=== PATIENT | female | born 1995 | race Asian ===

== ENCOUNTER 2024-05-04 06:36 | Outpatient (REF) | payer OTHER, SELFPAY ==
--- NOTE | ~2024-05-04 | US_ITS ---
EXAMINATION: ULTRASOUND PELVIC, COMPLETE CLINICAL INFORMATION: History intramenstrual bleeding for one year. COMPARISON: None. TECHNIQUE: Transvaginal: Used to better visualize pelvic structures Transabdominal: Not adequate for visualization. Spectral Doppler and color Doppler exam was utilized. LMP: Uncertain FINDINGS: UTERUS: Uterus is unremarkable. Uterus measures 7.2 x 4 x 5 cm. Endometrial thickness 0.6 cm. ADNEXA: Ovarian vascularity:Doppler demonstrates both arterial and venous vascular flow in the right and left ovary. No evidence of ovarian torsion. Right Ovary: 2.5 x 1.6 x 2.2 cm. Volume 4.5 mL Left Ovary: 2 x 1.7 x 1.7 cm. Volume 3.0 mL Cul-de-sac: No Fluid US/US pelvic and transvaginal IMPRESSION: Normal ultrasound of the pelvis.
== END 2024-05-04 06:37 | disposition home or self-care (01) ==
LOC: HO.UMASIMG 06:36
PROVIDERS: Visit Provider Nurse Practitioner Women's Health
DX: N93.8 Other specified abnormal uterine and vaginal bleeding (principal)
CPT/HCPCS: 76830; 76856